=== PATIENT | male | born 1975 | race Caucasian/White ===

== ENCOUNTER 2018-03-24 13:43 | Inpatient (IN) | payer OTHER ==
[~2018-03-24] VITALS: Ht 188 cm; Wt 86.7 kg
[2018-03-24 15:12] LABS: HEMATOCRIT 44.9 % (38.0-50.0); HEMOGLOBIN 15.7 G/DL (12.5-16.6); MCH 31.8 PG (29.0-34.0); MCV 90.9 FL (86-99); PLATELET COUNT 282 K/uL (156-360); RBC DIS.WIDTH-CV 13.3 % (11.8-14.6); RBC DIS.WIDTH-SD 44.8 % (39-53); RED BLOOD COUNT 4.94 M/uL (4.00-5.50); WHITE BLOOD COUNT 9.9 K/uL (4.1-10.2)
[2018-03-24 15:26] LABS: CHLORIDE 107 mEq/L (99-109); POTASSIUM 3.6 mEq/L (3.7-5.4); SODIUM 141 mEq/L (136-147)
[2018-03-24 15:27] LABS: GLUCOSE 98 mg/dL (70-99)
[2018-03-24 15:31] LABS: CREATININE 0.9 mg/dL (0.6-1.3); GFR ESTIMATE (CALCULATED) > 59 mL/min/ (58.99-99999)
[2018-03-24 15:32] LABS: UREA NITROGEN (BUN) 7 mg/dL (9-23)
[2018-03-24 16:56] VITALS: BP 143/82
[2018-03-24 19:48] VITALS: BP 142/80
[2018-03-25 00:05] VITALS: BP 137/81
[2018-03-25 03:41] VITALS: BP 144/77
[2018-03-25] MEDS ORDERED: GABAPENTIN300 MG PO (07:45)
[2018-03-25] MEDS ORDERED: DIAZEPAM5 MG PO (07:45)
[2018-03-25] MEDS ORDERED: TRAMADOL HCL50 MG PO (07:45)
[2018-03-25 07:46] VITALS: BP 146/78
[2018-03-25 12:18] VITALS: BP 152/82
[2018-03-25 16:15] VITALS: BP 137/95
== END 2018-03-25 17:38 | disposition home or self-care (01) | DRG 53 ==
LOC: EME 13:43 → EDOF 15:35 → 3EAST 15:35
PROVIDERS: Emergency Medicine
DX: S14.0XXA Concussion and edema of cervical spinal cord, initial encounter (principal); V86.55XA Driver of 3- or 4- wheeled all-terrain vehicle (ATV) injured in nontraffic accident, initial encounter; M50.220 Other cervical disc displacement, mid-cervical region, unspecified level; M48.02 Spinal stenosis, cervical region; F17.200 Nicotine dependence, unspecified, uncomplicated
CPT/HCPCS: 80048; 85027; 99281; 99285; J1100; J8540